=== PATIENT | male | born 1955 | race Caucasian/White ===

== ENCOUNTER 2022-06-09 14:16 | Emergency (ER) | payer OTHER, SELFPAY ==
[2022-06-09] VITALS (10 sets, daily range): BP systolic 151–198; BP diastolic 80–94; PULSE 81–96; RESP 13–27; TEMP 37.1–37.6; O2SAT 97
--- NOTE | 2022-06-09 14:35 | DI.RAD.S_ITS ---
PROCEDURE: XR CHEST 1V INDICATIONS: suspected sepsis TECHNIQUE: One view of the chest was acquired. COMPARISON: None. FINDINGS: Surgical changes and devices: None. Lungs and pleura: Lungs are clear. No pleural effusions or pneumothorax. Mediastinum: Mediastinal contours appear normal. Heart size is normal. Bones and chest wall: No suspicious bony lesions. Overlying soft tissues appear unremarkable. IMPRESSION: No acute radiographic abnormality. Dictated by: Ernesto Brooks M.D. on 06/09/2022 at 15:07 Approved by: Ernesto Brooks M.D. on 06/09/2022 at 15:07
[2022-06-09 15:10] LABS: Alanine Aminotransferase 41 IU/L (<50); Albumin 4.6 g/dL (3.5-5.0); Albumin Globulin Ratio 1.1 (1.0-2.8); Alkaline Phosphatase 96 U/L (38-126); Aspartate Aminotransferase 32 IU/L (17-59); Blood Urea Nitrogen 16 mg/dL (9-20); Carbon Dioxide 26 mmol/L (22-32); Chloride 98 mmol/L (98-107); Estimated Glomerular Filt Rate > 60 mL/min (>60); Globulin 4.1 g/dL (1.7-4.1); Glucose 116 mg/dL (80-110); HEMOLYSIS < 15 (0-50); Lipase 29 U/L (23-300); Potassium 3.5 mmol/L (3.4-5.1); Sodium 136 mmol/L (137-145); Total Protein 8.7 g/dL (6.3-8.2)
[2022-06-09 15:11] LABS: Lactate (Lactic Acid) 0.9 mmol/L (0.7-2.1)
[2022-06-09] MEDS: SODIUM CHLORIDE 0.9% 1,000 ML 1000 ML IV ×2 (15:13→16:14)
[2022-06-09 15:15] LABS: Add Manual Diff / Slide Review NO; Basophils Absolute Auto 0 /uL (0-100); Basophils Percent Auto 0.3 % (0-2); Eosinophils Absolute Auto 0 /uL (0-450); Eosinophils Percent Auto 0.5 % (2-4); Hemoglobin 14.7 g/dL (13.5-17.5); Lymphocytes Absolute Auto 700 /uL (1100-4500); Lymphocytes Percent Auto 7.8 % (25-40); Mean Corpuscular Hemoglobin 32.4 PG (26-34); Mean Corpuscular Volume 92.6 fL (80-100); Monocytes Absolute Auto 600 /uL (0-900); Monocytes Percent Auto 6.1 % (3-14); Neutrophils Absolute Auto 8200 /uL (1500-7000); Neutrophils Percent Auto 85.3 % (50-75); Platelet Count 161 X10^3/uL (150-400); Red Blood Cell Count 4.54 X10^6/uL (4.5-5.9); Red Cell Distribution Width 12.9 % (11.6-14.8); White Blood Cell Count 9.6 X10^3/uL (4.5-11.0)
[2022-06-09 15:22] LABS: RBC Urine 10-30/HPF (0-5/HPF); WBC Urine >100/HPF (0-5/HPF)
[2022-06-09 15:23] LABS: Bacteria Urine Many (>30); Urine Comments CX ALREADY ORDERED
[2022-06-09 15:27] LABS: Procalcitonin 0.58 ng/mL (<0.5)
--- NOTE | 2022-06-09 15:48 | DI.CT.S_ITS ---
PROCEDURE: CT KIDNEY URETER BLADDER (KUB) INDICATIONS: flank pain, uti, retention TECHNIQUE: Axial sections were acquired from the lung bases to the pubic symphysis. Coronal and sagittal reformats were performed. For radiation dose reduction, the following was used: automated exposure control, adjustment of mA and/or kV according to patient size. COMPARISON: [facility], CR, XR CHEST 1V, 06/09/2022, 14:48. FINDINGS: Image quality: Excellent. Lung bases: Unremarkable. A small hiatal hernia is incidentally noted. Heart: No significant findings. URINARY: Right Kidney: There is moderate right-sided and hydronephrosis. There is a tiny 2 mm nonobstructing stone seen within the right kidney, on series 2, image 97. At the inferior pole of the right kidney, there is a simple appearing cyst measuring water density and 4.7 cm. Right Ureter: There is moderate right-sided hydroureter. Left Kidney: Minimal left-sided hydronephrosis is seen. A prominent left renal pelvis can be seen. There is a nonobstructing stone at the inferior pole of the left kidney measures 4 mm. A simple appearing left renal cyst is seen posteriorly measuring 1.6 cm. Left Ureter: Minimal left-sided hydroureter is seen. Bladder: Within the dependent bladder, there is a stone seen measuring 2 mm, as on series 2, image 77. There are bladder is prominent, measuring nearly 13 cm craniocaudal. ABDOMEN: Liver: Simple appearing, water density liver cysts are seen. The liver is normal in size and demonstrates no suspicious lesions. Gallbladder: Unremarkable. Biliary ducts: Unremarkable. Pancreas: Unremarkable. Spleen: Unremarkable. Adrenal Glands: Unremarkable. Stomach and Bowel: Stomach, small bowel loops, and colon are unremarkable. Colonic diverticulosis is seen, without findings of active diverticulitis. Peritoneum: No abnormal intraperitoneal fluid. No free air. Ventral Wall: No hernia. Abdominal Nodes: No enlarged retroperitoneal or mesenteric lymph nodes. Vessels: Aorta and inferior vena cava are normal in size. PELVIS: Pelvic Organs: Unremarkable. Pelvic Nodes: Unremarkable. Miscellaneous: No inguinal hernias are seen. Bones: Unremarkable. IMPRESSION: There is a 2 mm dependently layering stone within the urinary bladder, which is attributed to a recently passed stone. There is moderate right-sided hydronephrosis and hydroureter. Nonobstructing bilateral kidney stones are seen. Prominent urinary bladder size. Please correlate with bladder outlet obstruction in a male patient of this age. Incidental note is made of: Small hiatal hernia Simple appearing liver cysts Simple appearing bilateral renal cysts Dictated by: Bruce Mathew M.D. on 06/09/2022 at 15:14 Approved by: Bruce Mathew M.D. on 06/09/2022 at 15:20
--- NOTE | 2022-06-09 16:01 | PC.NURSE ---
Pt reports incontinent, intermittent dribbling for the past 2 days with LEFT flank pain that wraps to lower left abdomen. Pt reports not having a full void for 2 days. Fevers for past week. Reports hx of diverticulitis and kidney stones. Pt also reports chronic back pain.
--- NOTE | 2022-06-09 16:08 | PC.NURSE ---
Addendum entered by Rober Ardon R.N. 06/09/22 16:10: Pt also reports some mild discomfort in his chest last night while at rest last night for not even a minute. Original Note: Pt reports hx of cardiac ablation in January with another ablation scheduled on Friday. Pt appliquer is Magno Bunn.
[2022-06-09] MEDS: cefTRIAXone 2,000 MG in SODIUM CHLORIDE 0.9% 100 ML 200 MG IV (16:13)
[2022-06-09] MEDS: LIDOCAINE 2% (GLYDO) 6 ML GEL TOP (16:14)
--- NOTE | 2022-06-09 16:49 | ED_ITS ---
HPI - Male Genitourinary General Chief complaint: Fever Stated complaint: bladder infection no bowel movment 2days back pain Time Seen by Provider: 06/09/22 15:48 Source: patient Mode of arrival: Ambulatory Limitations: no limitations History of Present Illness HPI Narrative: This is a 67-year-old male with history of hypertension, atrial fibrillation not on any anticoagulation, history of multiple kidney stones, diverticulitis with resection in the past and chronic back pain. 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 This was remotely. 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 Patient states he was taking some oxycodone as well as diazepam for his back pain he takes this as needed noticed he was having a bit of bladder retention at times but then became constipated he has not had a bowel movement last 3 or 4 days and states he noticed that he was having more and more difficulty urinating. He states today he was not able to urinate more than a thimble full. States he had a fever yesterday of 101 F, he describes pelvic pain as well as bilateral flank pain. He denies cold cough or congestion, no chest pain, no shortness of breath, no nausea no vomiting. Had a very small bowel movement today he has been having flatus. Patient states he was having some one-sided flank pain earlier today but that had resolved. Patient states allergic to sulfa and albuterol. No tobacco, 2-3 alcoholic drinks daily, no illicit. Related Data Previous Rx's Medication Instructions Recorded ciprofloxacin HCl 500 mg tablet 500 mg PO BID #20 tabs 06/09/22 tamsulosin 0.4 mg capsule (Flomax) 0.4 mg PO DAILY #10 caps 06/09/22 Allergies Allergy/AdvReac Type Severity Reaction Status Date / Time albuterol Allergy Verified 06/09/22 14:34 Sulfa (Sulfonamide Allergy Verified 06/09/22 14:34 Antibiotics) Review of Systems Review of Systems ROS Unobtainable: All systems reviewed & are unremarkable except as noted in HPI and below Exam Narrative Exam Narrative: GENERAL: Alert and oriented x three, male in moderate distress. HEENT: Head normocephalic, atraumatic, EOMI, pupils reactive, face symmetric, moist mucous membranes NECK: Supple, full range of motion CARDIOVASCULAR: Regular rate and rhythm without murmurs, rubs or gallops. RESPIRATORY: Breath sounds equal bilaterally, no wheezes rales or rhonchi. ABDOMEN: Soft, moderate tenderness. Mildly distended. Patient has had 700 mL out on Huber catheter. Normoactive bowel sounds all 4 quadrants. No guarding or rebound, rigidity, no mass : No CVA tenderness EXTREMITIES: Normal range of motion, no clubbing or edema. Neurovascularly intact NEUROLOGICAL: Cranial nerves II through XII grossly intact. Moving all extremities SKIN: Warm, dry, no petechiae, no rashes or lesions. Initial Vital Signs Initial Vital Signs: Vital Signs Temperature 98.7 F 06/09/22 14:32 Pulse Rate 89 06/09/22 14:32 Respiratory Rate 24 06/09/22 14:32 Blood Pressure 175/94 H 06/09/22 14:32 Pulse Oximetry 97 06/09/22 14:32 Oxygen Delivery Method 06/09/22 14:32 Course Orders Ordered: ED Orders 06/09/22 14:35 XR chest 1V Stat RT Consult Eval and Treat NOW 06/09/22 14:43 Complete Blood Count AUTO DIFF Stat Comprehensive Metabolic Panel Stat Lactate (Lactic Acid) Stat Lipase Stat Procalcitonin Stat 06/09/22 15:15 Urine Culture Stat Urine Microscopic Stat 06/09/22 15:22 Blood Culture Stat 06/09/22 15:48 CT kidney ureter bladder (KUB) Stat 06/09/22 16:12 EKG-12 Lead Stat Discontinued Medications Diazepam (Diazepam 5 Mg Tablet) 10 mg PO NOW ONE Stop: 06/09/22 17:06 Last Admin: 06/09/22 17:10 Dose: 10 mg Documented By: SB Sodium Chloride (Normal Saline 0.9%) 1,000 mls @ 1,000 mls/hr IV BOLUS ONE Stop: 06/09/22 15:34 Last Infusion: 06/09/22 16:15 Dose: 0 mls/hr Documented By: Admin: 06/09/22 15:13 Dose: 1,000 mls/hr Documented By: SYEDA Ceftriaxone Sodium 2,000 mg/ (Sodium Chloride) 100 mls @ 200 mls/hr IV NOW ONE Stop: 06/09/22 15:49 Last Infusion: 06/09/22 17:01 Dose: 0 mls/hr Documented By: Admin: 06/09/22 16:13 Dose: 200 mls/hr Documented By: SB Sodium Chloride (Normal Saline 0.9%) 1,000 mls @ 1,000 mls/hr IV BOLUS ONE Stop: 06/09/22 16:47 Last Infusion: 06/09/22 18:28 Dose: 0 mls/hr Documented By: Admin: 06/09/22 16:14 Dose: 1,000 mls/hr Documented By: SB Ketorolac Tromethamine (Ketorolac 30 Mg/Ml Vial) 15 mg IV NOW ONE Stop: 06/09/22 17:06 Last Admin: 06/09/22 17:10 Dose: 15 mg Documented By: SB Lidocaine HCl (Lidocaine 2% (Glydo) 6 Ml Gel) 6 ml TOP NOW ONE Stop: 06/09/22 15:50 Last Admin: 06/09/22 16:14 Dose: 6 ml Documented By: SB Magnesium Citrate (Magnesium Citrate 300 Ml Solution) 300 ml PO NOW ONE Stop: 06/09/22 18:28 Last Admin: 06/09/22 18:34 Dose: Not Given Polyethylene Glycol (Polyethylene Glycol 3350 17 Gm Powd.Pack) 17 gm PO DAILY ONE Stop: 06/09/22 18:37 Vital Signs Vital signs: Vital Signs - 8 hr 06/09/22 14:32 06/09/22 16:25 06/09/22 16:25 Temperature 98.7 F Pulse Rate 89 96 H Respiratory Rate 24 Blood Pressure 175/94 H 198/93 H Pulse Oximetry 97 97 Oxygen Delivery Method Room Air 06/09/22 16:30 06/09/22 16:30 06/09/22 16:39 Temperature Pulse Rate 92 H 92 H Respiratory Rate 13 19 Blood Pressure 181/91 H Pulse Oximetry 97 97 Oxygen Delivery Method 06/09/22 16:39 06/09/22 17:00 06/09/22 17:00 Temperature Pulse Rate 93 H Respiratory Rate 19 Blood Pressure 163/81 H 176/89 H Pulse Oximetry 97 Oxygen Delivery Method 06/09/22 17:30 06/09/22 17:30 06/09/22 17:40 Temperature 99.7 F H Pulse Rate 88 Respiratory Rate 20 Blood Pressure 151/80 H Pulse Oximetry 97 Oxygen Delivery Method 06/09/22 18:00 06/09/22 18:00 06/09/22 18:27 Temperature Pulse Rate 82 Respiratory Rate 27 H 20 Blood Pressure 157/84 H Pulse Oximetry 97 Oxygen Delivery Method MDM - Male Genitourinary Lab Data Result diagrams: 06/09/22 14:43 06/09/22 14:43 Labs: Lab Results 06/09/22 06/09/22 06/09/22 Range/Units 14:43 14:43 14:43 WBC 9.6 (4.5-11.0) X10^3/uL RBC 4.54 (4.5-5.9) X10^6/uL Hgb 14.7 (13.5-17.5) g/dL Hct 42.0 (41-53) % MCV 92.6 (80-100) fL MCH 32.4 (26-34) PG MCHC 35.0 (30-36) % RDW 12.9 (11.6-14.8) % Plt Count 161 (150-400) X10^3/uL Neut % (Auto) 85.3 H (50-75) % Lymph % (Auto) 7.8 L (25-40) % [place] % (Auto) 6.1 (3-14) % Eos % (Auto) 0.5 L (2-4) % Baso % (Auto) 0.3 (0-2) % Neut # (Auto) 8200 H (7049-3980) /uL Lymph # (Auto) 700 L (3571-6122) /uL [place] # (Auto) 600 (0-900) /uL Eos # (Auto) 0 (0-450) /uL Baso # (Auto) 0 (0-100) /uL Sodium 136 L (137-145) mmol/L Potassium 3.5 (3.4-5.1) mmol/L Chloride 98 (98-107) mmol/L Carbon Dioxide 26 (22-32) mmol/L BUN 16 (9-20) mg/dL Creatinine 0.94 (0.66-1.25) mg/dL Estimated GFR > 60 (>60) mL/min BUN/Creatinine Ratio 17.0 (6-22) Glucose 116 H (80-110) mg/dL Lactate 0.9 (0.7-2.1) mmol/L Calcium 10.0 (8.4-10.2) mg/dL Total Bilirubin 1.0 (0.2-1.3) mg/dL AST 32 (17-59) IU/L ALT 41 (<50) IU/L Alkaline Phosphatase 96 (38-126) U/L Total Protein 8.7 H (6.3-8.2) g/dL Albumin 4.6 (3.5-5.0) g/dL Globulin 4.1 (1.7-4.1) g/dL Albumin/Globulin Ratio 1.1 (1.0-2.8) Lipase 29 (23-300) U/L Procalcitonin 0.58 H (<0.5) ng/mL Urine RBC (0-5/HPF) Urine WBC (0-5/HPF) Urine Bacteria (None) Ur Culture Indicated? Micro UA Comment 06/09/22 Range/Units 15:15 WBC (4.5-11.0) X10^3/uL RBC (4.5-5.9) X10^6/uL Hgb (13.5-17.5) g/dL Hct (41-53) % MCV (80-100) fL MCH (26-34) PG MCHC (30-36) % RDW (11.6-14.8) % Plt Count (150-400) X10^3/uL Neut % (Auto) (50-75) % Lymph % (Auto) (25-40) % [place] % (Auto) (3-14) % Eos % (Auto) (2-4) % Baso % (Auto) (0-2) % Neut # (Auto) (2068-6772) /uL Lymph # (Auto) (5411-3067) /uL [place] # (Auto) (0-900) /uL Eos # (Auto) (0-450) /uL Baso # (Auto) (0-100) /uL Sodium (137-145) mmol/L Potassium (3.4-5.1) mmol/L Chloride (98-107) mmol/L Carbon Dioxide (22-32) mmol/L BUN (9-20) mg/dL Creatinine (0.66-1.25) mg/dL Estimated GFR (>60) mL/min BUN/Creatinine Ratio (6-22) Glucose (80-110) mg/dL Lactate (0.7-2.1) mmol/L Calcium (8.4-10.2) mg/dL Total Bilirubin (0.2-1.3) mg/dL AST (17-59) IU/L ALT (<50) IU/L Alkaline Phosphatase (38-126) U/L Total Protein (6.3-8.2) g/dL Albumin (3.5-5.0) g/dL Globulin (1.7-4.1) g/dL Albumin/Globulin Ratio (1.0-2.8) Lipase (23-300) U/L Procalcitonin (<0.5) ng/mL Urine RBC 10-30/hpf H (0-5/HPF) Urine WBC >100/hpf H (0-5/HPF) Urine Bacteria Many (>30) H (None) Ur Culture Indicated? Culture not indicate Micro UA Comment Cx already ordered Urine Dip Bedside Urine Glucose Negative Bedside Urine Bilirubin - Negative Bedside Urine Ketone + 15 Urine Specific [place] 1.025 Bedside Urine Occult Blood +++ Bedside Urine pH 6 Bedside Urine Protein ++ 100 Bedside Urine Urobilinogen - Negative Bedside Urine Nitrite + Positive Bedside Urine Leukocytes ++ [address] scan - abdomen/pelvis: Radiologist's Impression: [place] [address] CT Scan Report Signed Patient: Gigi Gregory MR#: [id number] : 1955 Acct:[id number] Age/Sex: 67 / M Date of Service: 06/09/22 Loc: ED Accession Number: [id number] ?? Procedure: CT kidney ureter bladder (KUB) Ordering Provider: Kaylan Stewart D.O. PROCEDURE:? CT KIDNEY URETER BLADDER (KUB) ? INDICATIONS:? flank pain, uti, retention ? TECHNIQUE:? Axial sections were acquired from the lung bases to the pubic symphysis.? Coronal and sagittal reformats were performed.? For radiation dose reduction, the following was used: ?automated exposure control, adjustment of mA and/or kV according to patient size.? ? COMPARISON:? [facility], CR, XR CHEST 1V, 06/09/2022, 14:48. ? FINDINGS:? Image quality:? Excellent.? ? Lung bases:? Unremarkable.? ? A small hiatal hernia is incidentally noted.? Heart:? No significant findings. ? URINARY: Right Kidney:? There is moderate right-sided and hydronephrosis.? There is a tiny 2 mm nonobstructing stone seen within the right kidney, on series 2, image 97. At the inferior pole of the right kidney, there is a simple appearing cyst measuring water density and 4.7 cm. Right Ureter:? There is moderate right-sided hydroureter.? ? Left Kidney:? Minimal left-sided hydronephrosis is seen.? A prominent left renal pelvis can be seen.? There is a nonobstructing stone at the inferior pole of the left kidney measures 4 mm.? A simple appearing left renal cyst is seen posteriorly measuring 1.6 cm.? ? Left Ureter:? Minimal left-sided hydroureter is seen.? ? Bladder:? Within the dependent bladder, there is a stone seen measuring 2 mm, as on series 2, image 77. There are bladder is prominent, measuring nearly 13 cm craniocaudal. ? ABDOMEN: Liver:? Simple appearing, water density liver cysts are seen. The liver is normal in size and demonstrates no suspicious lesions. Gallbladder:? Unremarkable.? ? Biliary ducts:? Unremarkable.? ? Pancreas:? Unremarkable.? ? Spleen:? Unremarkable.? ? Adrenal Glands:? Unremarkable.? ? ? Stomach and Bowel:? Stomach, small bowel loops, and colon are unremarkable.? Colonic diverticulosis is seen, without findings of active diverticulitis. Peritoneum:? No abnormal intraperitoneal fluid.? No free air.? ? Ventral Wall: ? No hernia.? Abdominal Nodes:? No enlarged retroperitoneal or mesenteric lymph nodes.? Vessels:? Aorta and inferior vena cava are normal in size.? ? PELVIS: Pelvic Organs:? Unremarkable.? ? Pelvic Nodes: Unremarkable. Miscellaneous: No inguinal hernias are seen. ? ? ? Bones:? Unremarkable. ? IMPRESSION:? ? There is a 2 mm dependently layering stone within the urinary bladder, which is attributed to a recently passed stone.? ? There is moderate right-sided hydronephrosis and hydroureter. ? Nonobstructing bilateral kidney stones are seen.? ? Prominent urinary bladder size.? Please correlate with bladder outlet obstruction in a male patient of this age. ? ? Incidental note is made of: Small hiatal hernia Simple appearing liver cysts Simple appearing bilateral renal cysts ? ? ? Dictated by: Bruce Mathew M.D. on 06/09/2022 at 15:14 ? ? Approved by: Bruce Mathew M.D. on 06/09/2022 at 15:20? Chest x-ray: Radiologist's Impression: [address] [address] XRay Report Signed Patient: Gigi Gregory MR#: [id number] : 1955 Acct:[id number] Age/Sex: 67 / M Date of Service: 06/09/22 Loc: ED Accession Number: [id number] ?? Procedure: XR chest 1V Ordering Provider: Kaylan Stewart D.O. PROCEDURE:? XR CHEST 1V ? INDICATIONS:? suspected sepsis ? TECHNIQUE:? One view of the chest was acquired.? ? COMPARISON:? None. ? FINDINGS:? ? Surgical changes and devices:? None.? ? Lungs and pleura:? Lungs are clear.? No pleural effusions or pneumothorax.? ? Mediastinum:? Mediastinal contours appear normal.? Heart size is normal.? ? Bones and chest wall:? No suspicious bony lesions.? Overlying soft tissues appear unremarkable.? ? IMPRESSION:? No acute radiographic abnormality. ? ? Dictated by: Ernesto Brooks M.D. on 06/09/2022 at 15:07 ? ? Approved by: Ernesto Brooks M.D. on 06/09/2022 at 15:07?? ECG Data Attestation: I personally reviewed and interpreted this ECG as follows: Prior ECG tracings: not available for review Interpretation: Normal sinus rhythm rate of 91 CO 204 QRS of 102 and QTC of 457. No acute ST changes appreciated. Incomplete Right bundle branch. No priors for comparison. MDM Narrative Medical decision making narrative: This is a 67-year-old male with history of chronic back pain with acute on chronic, urinary retention, reported fever, positive UTI with nitrates, no white count but positive procalcitonin patient's heart rate is in the 90s no hypotension so far. Patient had Huber catheter which significantly improved abdominal pain. Toradol as well as diazepam for pain. Normal renal function. Patient has moderate right-sided hydro with a 2 mm nonobstructing stone in the right kidney as well as minimal left hydro simple appearing left renal cyst and in the dependent bladder stone measuring 2 mm with prominence of the bladder prior to Huber catheter placement. Suspect patient recently passed a kidney stone, fluids, IV antibiotics and on recheck patient would like to return home. Plan for oral antibiotics outpatient, blood cultures are pending and patient was instructed if these are positive he will need to return. He does have an ablation scheduled for Friday and is aware that if positive needs to return and should not have his ablation. Patient does not meet septic criteria at this time. Patient has not been hypotensive he continues to feel improved after medications. He would like to return home. Strict return precautions all questions answered. Discharge Plan Departure Patient Disposition: Home Clinical Impression: Acute UTI, Acute urinary retention, Constipation Instructions: DI for Urinary Retention in Men Activity Restrictions/Additional Instructions: Follow-up with urology in the next week for recheck and removal of your Huber catheter. Your blood cultures are pending if these are positive you will need to return f or IV antibiotics. These typically result in approximately 48 hours and you should be contacted if positive. Continue with stool softener daily such as colace 1-2 tablets. Make sure you drink plenty of fluids. You can also take fiber such as miralax daily. Continuous stool softener every day while taking narcotic pain medication. Take Flomax once daily until gone. Take antibiotics until completely gone. Prescription sent to [facility] in [place]. Please return for recurrent fevers, new or increasing abdominal, back or flank pain, persistent vomiting, blockage or inability to for your catheter to drain, large clots, if you are having vomiting, if you are not having bowel movements and or passing gas/flatus or other new or concerning symptoms. Prescriptions: New tamsulosin [Flomax] 0.4 mg capsule 0.4 mg PO DAILY Qty: 10 0RF ciprofloxacin HCl 500 mg tablet 500 mg PO BID Qty: 20 0RF Referrals: Rafia Perdue PA-C [Primary Care Provider] - Carson Vernon MD [Physician] -
[2022-06-09] MEDS: KETOROLAC 30 MG/ML VIAL 15 MG IV (17:10)
[2022-06-09] MEDS: diazePAM 5 MG TABLET 10 MG PO (17:10)
[2022-06-09] MEDS: polyethylene glycoL 3350 17 GM POWD.PACK PO (18:59)
== END 2022-06-09 19:04 | disposition home or self-care (01) ==
PROVIDERS: Emergency Provider Emergency Medicine; PCP Physician Assistant
DX: N39.0 Urinary tract infection, site not specified (principal); R33.8 Other retention of urine; K59.00 Constipation, unspecified; R10.9 Unspecified abdominal pain
CPT/HCPCS: 36415; 51701; 51798; 71045; 74176; 80053; 81003; 81015; 83605; 83690; 84145; 85025; 87040; 87077; 87086; 87186; 93005; 93010; 96361; 96365; 96375; 99284; 99285; J0696; J1885